=== PATIENT | female | born 1950 | race Caucasian/White ===

== ENCOUNTER → 2016-06-26 | Outpatient (CLI) | payer OTHER ==
[~2016-06-26] MED LIST: ACET300T2 PO; ANT25 PO; CEPH500C PO; ESOM20CA PO; FLUT0.15 NAE; KETO10TA PO; MAXAIR INH; MISCTAB78 PO; MULTTAB58 PO; ONDA4TAB10 SL; OXYC-57 PO; RIZA10TA19 PO; ROSU5TAB PO
[2016-06-26 11:10] LABS: BASO % 0.8 %; BASO ABS # 0.04 K/uL (0-0.2); COMPLETE YES; HEMATOCRIT 40.3 % (37-47); LYMPH % 45.5 %; LYMPH ABS # 2.33 K/uL (1.2-3.4); MEAN CORPUSCULAR HEMOGLOBIN 30.3 pg (25-34); MEAN CORPUSCULAR HGB CONC 34.5 g/dl (32-36); MEAN PLATELET VOLUME 10.1 fL (7.4-10.4); MONO % 8.4 %; NEUT % 43.3 %; PLATELET COUNT 249 K/uL (130-400); RED BLOOD COUNT 4.58 M/uL (4.2-5.4); WHITE BLOOD COUNT 5.12 K/uL (4.8-10.8)
[2016-06-26 12:08] LABS: BLOOD UREA NITROGEN 11 mg/dl (7-18); BUN/CREATININE RATIO 15.9 (10-20); CALCIUM 9.7 mg/dl (8.5-10.1); CARBON DIOXIDE 26 mmol/L (21-32); CHLORIDE 106 mmol/L (98-107); CREATININE 0.67 mg/dl (0.60-1.20); GLUCOSE 80 mg/dl (70-99); POTASSIUM 4.3 mmol/L (3.5-5.1); SODIUM 143 mmol/L (136-145)
== END | disposition home or self-care (01) ==
LOC: C.CPL 10:10
PROVIDERS: ATTEND Orthopaedic Surgery
DX: Z01.812 Encounter for preprocedural laboratory examination (principal); Z01.810 Encounter for preprocedural cardiovascular examination; M25.512 Pain in left shoulder

== ENCOUNTER → 2016-07-18 | Day surgery (SDC) | payer OTHER ==
[2016-07-03 13:08] VITALS: Ht 156.2 cm; Wt 69.1 kg
[~2016-07-18] VITALS: Ht 156.2 cm; Wt 69.1 kg
[~2016-07-18] MED LIST changes: +ATROPINE SULFATE 0.1 MG/ML 5ML SYR IV PRN; +BUPIVACAINE/EPINEPHRINE 0.25% 1:200,000 30 ML VIAL ONE; +BUPIVACAINE/EPINEPHRINE 0.5% MPF 1:200,000 30 ML VIAL ONE; +CEFAZOLIN 1000MG/55 ML D5W IV SCH; +CEFAZOLIN 2000 MG/60 ML D5W IV SCH; +CEFAZOLIN 3000 MG/65 ML D5W IV SCH; +CIPROFLOXACIN / D5W 400 MG IV SCH; +CLINDAMYCIN 600 MG/54 ML D5W IV SCH; +DEXAMETHASONE SOD INJ 4 MG/ML VIAL ONE; +EpHEDrine SULFATE INJ 50 MG/ML AMP IV PRN; +EpINEphrine INJ 1MG/ML AMP 1 MG/ML AMP ONE; +FENTANYL CITRATE INJ 50 MCG/1 ML 2 ML VIAL IV PRN; +FENTANYL CITRATE INJ 50 MCG/1 ML 2 ML VIAL ONE; +LACTATED RINGER'S 1000ML 1,000 ML IV SCH; +LEVOFLOXACIN / D5W 500 MG IV SCH; +LEVOFLOXACIN / D5W 750 MG IV SCH; +LIDOCAINE HCL 2% 2 ML VIAL (20MG/ML) ONE; +MIDAZOLAM HCL 1 MG/ML 2ML VIAL ONE; +ONDANSETRON INJ 2 MG/ML 2 ML VIAL IV PRN; +ONDANSETRON INJ 2 MG/ML 2 ML VIAL ONE; +OXYCODONE/ACETAMINOPHEN 5-325 TAB PO PRN; +PROMETHAZINE HCL INJ 6.25 MG in SODIUM CHLORIDE 0.9% 50ML 50 ML IV PRN; +PROPOFOL IV EMULSION 10 MG/ML 20 ML VIAL IV ONE; +SODIUM CHLORIDE 0.9% 1000ML 1,000 ML IV SCH; +VANCOMYCIN 1GM/270ML NSS IV SCH
--- NOTE | 2016-07-18 08:14 | History & Physical Bridge - [place] ---
H&P Re-Evaluation Bridge Note: I have examined the patient, reviewed the History & Physical and in the interval since the performance of the History & Physical I have noted the following changes of clinical significance: No changes noted
--- NOTE | 2016-07-18 09:03 | [facility] Post Operative Brief Note ---
Immediate Operative Summary Operative Date Jul 18, 2016. Pre-Operative Diagnosis Impingement and AC joint arthritis left shoulder Post-Operative Diagnosis same Procedure(s) Performed Left Shoulder Arthroscopy, Biceps Tenotomy, Acromioplasty, Distal Clavicle Resection Surgeon Dr Toledo Breaker Layer Surgeon(s) MARIKA Rios Estimated Blood Loss trace Findings as above Specimens none Complication(s) None Disposition Recovery Room / PACU
--- NOTE | 2016-07-18 09:15 | Discharge Instructions-SurgCtr ---
Discharge Instructions Visit Reason for Visit: Left Shoulder Impingement Syndrome, Joint Pain Discharge Discharge Diagnosis / Problem: SAME ABOVE Discharge Goals Goal(s): Decrease discomfort, Improve function Activity Recommendations Activity Limitations: as noted below Lifting Limitations: gradually increase as tolerated Exercise/Sports Limitations: gradually increase as tolerated Shower/Bathe: may shower/bathe in 3 days Driving or Machine Use: WHEN OUT OF THE SLING AND OFF OF NARCOTICS Anesthesia . Post Anesthesia Instructions: If you have had General Anesthesia or IV Sedation: * Do not drive today. * Resume driving when surgeon permits. * Do not make important decisions or sign legal documents today. * Call surgeon for: 1. Temperature elevations greater than 101 degrees F. 2. Uncontrollable pain. 3. Excessive bleeding. 4. Persistent nausea and vomiting. 5. Medication intolerance (nausea, vomiting or rash). * For nausea and vomiting use only clear liquids such as: tea, soda, bouillon until nausea subsides, then gradually increase diet as tolerated. * If you have any concerns or questions, call your surgeon's office. If physician is unavailable and it is an emergency, call 911 or go to the nearest emergency room. . Instructions / Follow-Up Instructions / Follow-Up MEDICATIONS: * Resume previous medications unless instructed otherwise by your surgeon. * Always take pain medication on a full stomach or with food to avoid upset stomach. * Do not drink alcohol or drive while taking narcotics. * Ibuprofen or Tylenol may be taken if narcotic not needed. SPECIAL CARE INSTRUCTIONS: __ None _X_ Keep extremity elevated and iced x 48 hours; apply ice 20-30 minutes 8-10 times/day. May remove at night. X_ Sling (WEAR NEEDED FOR COMFORT) __24 hrs/day __ Remove at night __ Shoulder Immobilizer __ 24 hrs/day __ Remove at night _X_ Dressing __ Maintain until seen in office, may shower with plastic over site _X_ Remove dressings in 24-48 hours and then may shower _X_ Cover incisions with band-aids after showering __ Do not remove steri-strips Call physician if chills or temperature rises above 102 degrees or pain unrelieved by prescribed pain medications at . . Diet Recommendations Home Diet: no limitations Fluid Restriction: None Procedures Procedures Performed: Left Shoulder Arthroscopy, Biceps Tenotomy, Acromioplasty, Distal Clavicle Resection Pending Studies Studies pending at discharge: no Work Instructions Return To Work: after follow-up Lifting Limitations: INCREASE TOLERATED Medical Emergencies . Who to Call and When: Medical Emergencies: If at any time you feel your situation is an emergency, please call 911 immediately. . Non-Emergent Contact Non-Emergency issues call your: Primary Care Provider Call Non-Emergent contact if: you have a fever, temperature is above 101.5 . . "Provider Documentation" section prepared by Shayan Cooper.
--- NOTE | 2016-07-18 09:43 | Anesthesia Progress Nt - [facility] ---
Anesthesia Post Op Note Date & Time Jul 18, 2016 at 09:43 Vital Signs Pain Intensity: 0 Vital Signs Past 12 Hours Date Time Temp Pulse Resp B/P Pulse Ox O2 Delivery O2 Flow Rate FiO2 07/18/16 09:27 88 20 07/18/16 09:27 87 20 96 07/18/16 09:26 84 19 07/18/16 09:26 85 19 96 07/18/16 09:25 114/78 07/18/16 09:25 36.4 88 20 114/78 97 Room Air 07/18/16 09:21 80 18 100 07/18/16 09:21 80 18 07/18/16 09:20 106/63 07/18/16 09:16 86 19 100 07/18/16 09:16 85 19 07/18/16 09:15 108/64 07/18/16 09:14 100/66 07/18/16 09:14 36.8 89 11 100/66 100 Mask 6 07/18/16 08:16 0 07/18/16 08:15 0 07/18/16 08:10 89 11 120/76 100 07/18/16 08:10 90 07/18/16 08:05 89 07/18/16 08:05 89 0 134/78 99 07/18/16 08:00 84 0 99 07/18/16 08:00 86 07/18/16 07:55 89 0 99 07/18/16 07:55 92 07/18/16 07:50 85 13 07/18/16 07:50 86 13 99 07/18/16 07:42 36.2 88 20 131/84 97 Room Air Notes Mental Status: alert / awake / arousable, participated in evaluation Pt Amnestic to Procedure: Yes Nausea / Vomiting: adequately controlled Pain: adequately controlled Airway Patency, RR, SpO2: stable & adequate BP & HR: stable & adequate Hydration State: stable & adequate Anesthetic Complications: no major complications apparent
[2016-07-18 09:56] VITALS: BP 117/78; PULSE 84; TEMP 37.1; O2SAT 96
--- NOTE | 2016-07-18 10:35 | OPERATIVE REPORT ---
DATE OF OPERATION: 07/18/2016 PREOPERATIVE DIAGNOSIS: External impingement and acromioclavicular joint arthritis of the left shoulder. POSTOPERATIVE DIAGNOSIS: Same. PROCEDURE: Left shoulder diagnostic arthroscopy with limited debridement, distal clavicle resection, acromioplasty and biceps tenotomy. SURGEON: Dr. Luan Toledo. CONTRACTS ATTORNEY: Fuad Cooper PA-C, whose assistance was necessary for positioning the arm and helping with instrumentation. ANESTHESIA: Sedation with a left interscalene nerve block. COMPLICATIONS: None. CONDITION: Stable to PACU. INDICATIONS: Mari is a very pleasant 65-year-old female who presented to my office with chronic left shoulder pain. MRI and clinical examination were diagnostic for severe external impingement and AC joint arthritis. After failing conservative treatment, she elected to undergo arthroscopy. OPERATION AND FINDINGS: PROCEDURE: On 07/18/2016, she arrived at [facility] for the above procedure. She was seen in the preoperative holding area and the operative extremity was identified and signed. She was given a preoperative antibiotic and a left interscalene nerve block. She was taken back to the operating room, laid on the table in supine position and put under basic sedation. She was then put into the beachchair position. The left shoulder was prepped and draped in sterile fashion. Time-out was done and the patient and operative extremity was properly identified. A scope was introduced in the posterior portal. Diagnostic arthroscopy showed no cartilage damage to the humeral head or the glenoid. There was some redness around the base of the biceps tendon and the biceps tendon was very red on the dorsal aspect. There was a degenerative superior labral tear. The supraspinatus, infraspinatus, teres minor, and subscapularis were all checked and intact. An anterior portal was made. A shaver was used to do a limited debridement of the intraarticular structures and the biceps tendon was arthroscopically tenotomized. The scope was then put into the subacromial space. A lateral portal was made. A shaver was used to do a complete subacromial and subdeltoid bursectomy. An ablator was used to tease the coracoacromial ligament off the undersurface of the acromion and a 5-0 laura was used to complete an acromioplasty of a Bigliani type 3 acromion. A shaver was used to remove any excess debris and the bursal side of the rotator cuff was examined extensively without evidence of tear. Attention was turned to the distal clavicle. Through an anterior portal, a shaver and ablator were used to skeletonize the distal clavicle. A 5-0 laura was then used to resect the distal 7 mm from the clavicle. Complete resection was checked under direct visualization. Arthroscopic instruments were removed from the shoulder. Portal sites were closed with 3-0 nylon. She was then placed in a soft dressing and regular arm sling. She was then extubated, transferred to a litter and taken to the postanesthesia care unit in stable condition. She tolerated the procedure well. I attest to the content of the Intraoperative Record and any orders documented therein. Any exceptio ns are noted below.
== END | disposition home or self-care (01) ==
LOC: X.SURG 07:29
PROVIDERS: ATTEND Orthopaedic Surgery
DX: M75.42 Impingement syndrome of left shoulder (principal); M19.012 Primary osteoarthritis, left shoulder; M75.22 Bicipital tendinitis, left shoulder; Z87.828 Personal history of other (healed) physical injury and trauma

== ENCOUNTER → 2016-12-11 | Outpatient (CLI) | payer OTHER ==
[~2016-12-11] MED LIST changes: -ATROPINE SULFATE 0.1 MG/ML 5ML SYR IV PRN; -BUPIVACAINE/EPINEPHRINE 0.25% 1:200,000 30 ML VIAL ONE; -BUPIVACAINE/EPINEPHRINE 0.5% MPF 1:200,000 30 ML VIAL ONE; -CEFAZOLIN 1000MG/55 ML D5W IV SCH; -CEFAZOLIN 2000 MG/60 ML D5W IV SCH; -CEFAZOLIN 3000 MG/65 ML D5W IV SCH; -CIPROFLOXACIN / D5W 400 MG IV SCH; -CLINDAMYCIN 600 MG/54 ML D5W IV SCH; -DEXAMETHASONE SOD INJ 4 MG/ML VIAL ONE; -EpHEDrine SULFATE INJ 50 MG/ML AMP IV PRN; -EpINEphrine INJ 1MG/ML AMP 1 MG/ML AMP ONE; -FENTANYL CITRATE INJ 50 MCG/1 ML 2 ML VIAL IV PRN; -FENTANYL CITRATE INJ 50 MCG/1 ML 2 ML VIAL ONE; -LACTATED RINGER'S 1000ML 1,000 ML IV SCH; -LEVOFLOXACIN / D5W 500 MG IV SCH; -LEVOFLOXACIN / D5W 750 MG IV SCH; -LIDOCAINE HCL 2% 2 ML VIAL (20MG/ML) ONE; -MIDAZOLAM HCL 1 MG/ML 2ML VIAL ONE; -ONDANSETRON INJ 2 MG/ML 2 ML VIAL IV PRN; -ONDANSETRON INJ 2 MG/ML 2 ML VIAL ONE; -OXYCODONE/ACETAMINOPHEN 5-325 TAB PO PRN; -PROMETHAZINE HCL INJ 6.25 MG in SODIUM CHLORIDE 0.9% 50ML 50 ML IV PRN; -PROPOFOL IV EMULSION 10 MG/ML 20 ML VIAL IV ONE; -SODIUM CHLORIDE 0.9% 1000ML 1,000 ML IV SCH; -VANCOMYCIN 1GM/270ML NSS IV SCH
--- NOTE | 2016-12-11 12:44 | MAMMOGRAPHY REPORT ---
BILATERAL DIGITAL SCREENING MAMMOGRAM WITH CAD: 12/11/2016 CLINICAL HISTORY: Routine screening. Patient has no complaints. TECHNIQUE: Bilateral CC and MLO views were obtained. Current study was also evaluated with a Compute r Aided Detection (CAD) system. COMPARISON: Comparison is made to exams dated: 11/24/2015 mammogram, 11/17/2014 mammogram, 11/16/2013 mamm ogram, 11/09/2012 mammogram, 11/08/2011 mammogram, and 11/01/2010 mammogram - [facility] er. BREAST COMPOSITION: There are scattered areas of fibroglandular density in both breasts. FINDINGS: There are scattered bilateral benign rim calcifications in the breasts. Fluctuating nodul arity in the medial right breast, most likely represents fluctuating cysts. There is architectural d istortion in the upper outer quadrant of the right breast, likely representing the prior excisional b iopsy site. No suspicious spiculated or irregular mass, unexpected architectural distortion or clust er of suspicious microcalcifications is seen. IMPRESSION: ACR BI-RADS CATEGORY 1: NEGATIVE There is no mammographic evidence of malignancy. A 1 year screening mammogram is recommended. The pa tient will receive written notification of the results. Approximately 10% of breast cancers are not detected with mammography. A negative mammographic report should not delay biopsy if a clinically suggestive mass is present. Briana Lee M.D. ay/:12/11/2016 11:30:26 Solvent Process Extractor Operator: Christy Russell, [facility] letter sent: Normal 1/2 BI-RADS Code: ACR BI-RADS Category 1: Negative
== END | disposition home or self-care (01) ==
LOC: C.MAMM 11:06
PROVIDERS: ATTEND Physician Assistant
DX: Z12.31 Encounter for screening mammogram for malignant neoplasm of breast (principal)

== ENCOUNTER 2017-01-13 10:51 | Emergency (ER) | payer OTHER ==
[~2017-01-13] VITALS: Ht 154.9 cm; Wt 72.0 kg
[~2017-01-13 10:51] MED LIST changes: -ANT25 PO; -CEPH500C PO; -ONDA4TAB10 SL; -ROSU5TAB PO
[2017-01-13 11:00] VITALS: TEMP 36.7; Ht 154.9 cm; Wt 72.0 kg
[2017-01-13] MEDS ORDERED: ROSU5TAB PO (11:10)
[2017-01-13] MEDS ORDERED: SODIUM CHLORIDE 0.9% 1000ML 1,000 ML IV STA (12:06)
[2017-01-13] MEDS ORDERED: ONDANSETRON INJ 2 MG/ML 2 ML VIAL IV STA (12:06)
[2017-01-13] MEDS ORDERED: LORAZEPAM 2 MG/ML 1 ML VIAL IV STA (12:06)
[2017-01-13] MEDS ORDERED: MECLIZINE HCL 25 MG TAB PO STA (12:06)
[2017-01-13 12:51] LABS: BASO % 0.4 %; BASO ABS # 0.02 K/uL (0-0.2); COMPLETE YES; HEMATOCRIT 40.2 % (37-47); IG% 0.2 %; LYMPH % 18.8 %; LYMPH ABS # 0.96 K/uL (1.2-3.4); MEAN CELL VOLUME 88.2 fL (80-100); MEAN CORPUSCULAR HEMOGLOBIN 30.5 pg (25-34); MEAN CORPUSCULAR HGB CONC 34.6 g/dl (32-36); MEAN PLATELET VOLUME 9.9 fL (7.4-10.4); MONO % 8.8 %; NEUT % 71.8 %; PLATELET COUNT 217 K/uL (130-400); RED BLOOD COUNT 4.56 M/uL (4.2-5.4)
--- NOTE | 2017-01-13 12:56 | DIAGNOSTIC IMAGING REPORT ---
HEAD CT NONCONTRAST CT DOSE: 537.48 mGy.cm HISTORY: Dizziness. EVALUATE ALTERED MENTAL STATUS/WEAKNESS TECHNIQUE: Multiaxial CT images of the head were performed without the use of intravenous contrast. Automated exposure control was utilized for this study. A dose lowering technique was utilized adhering to the principles of ALARA. Comparison: None. Findings: The paranasal sinuses and mastoid air cells are clear. The calvarium and skull base are intact. The ventricles and sulci are within normal limits. There is no mass, hematoma, midline shift, or acute infarct. Prominent perivascular spaces inferior to the bilateral basal ganglia. These are considered to be normal variants Impression: No acute intracranial abnormality. Electronically signed by: Sudhir Gaines M.D. 01/13/2017 12:54 PM Dictated Date/Time: 01/13/2017 12:49 PM
--- NOTE | 2017-01-13 13:03 | EMERGENCY ROOM VISIT NOTE ---
History Report prepared by Serina: Osvaldo Molina Under the Supervision of: Dr. Ranjit Lopez M.D. First contact with patient: 11:59 Chief Complaint: DIZZY Stated Complaint: DIZZY, SEVERE CONGESTION, VOMITING Nursing Triage Summary: pt reports feeling dizzy started at 2300 last night. last week grandson dx with strep/ over weekend started with sorethroat and cough. vomits when she moves. took tylenol yesterday and has meclizine took last night and at 0630 this am History of Present Illness The patient is a 66 year old female who presents to the Emergency Room with complaints of constant dizziness starting last night starting around 2300. The patient additionally states that starting three days ago she was having a sore throat, then two days ago she had body aches, chills, a cough, and a runny nose. She states that last night when she tried to go to bed she started to get dizzy like the room was spinning, and every time she gets up to walk she gets dizzy and immediately vomits which has happened around 5 times.. She states that she has a history of vertigo after her shoulder surgery, though she states that this feels different. The patient additionally notes that she was taking care of her grandson this past week who was recently diagnosed with strep throat. The patient states that her sore throat is a little better than the past few days, and her dizziness is worsened when she looks left. She denies any current headache, though she did have one yesterday which resolved after taking her migraine medication. Source of History: patient Onset: last night around 2300 Position: other (global) Quality: other (dizziness) Timing: constant Associated Symptoms: + chills, + sorethroat, + cough, + vomiting, No headache Review of Systems See HPI for pertinent positives & negatives. A total of 10 systems reviewed and were otherwise negative. Past Medical & Surgical Medical Problems: (1) Vertigo Surgical Problems: (1) H/O shoulder surgery Social History Smoking Status: Never Smoker Marital Status: Occupation Status: retired Current/Historical Medications Scheduled Cephalexin Monohydrate (Keflex), 500 MG PO TID Misc Natural Products (Osteo Bi-Flex Advanced Do), 1 TAB PO BID Multiple Vitamin (Multivitamin), 1 TAB PO QAM Ondasetron Odt (Zofran Odt), 4-8 MG SL Q6H Rosuvastatin Calcium (Crestor), 5 MG PO DAILY Scheduled PRN Acetaminophen W/ Codeine (Tylenol W/Codeine #3), 1 TAB PO UD PRN for Migraine Esomeprazole Magnesium (Nexium), 20 MG PO QAM PRN for Indigestion Fluticasone Propionate (Nasal) (Flonase Allergy Relief), 2 SPRAY MARIAA DAILY PRN for ALLERGIES Meclizine HCl (Meclizine HCl), 1 TAB PO Q8 PRN for Dizziness or Vertigo Rizatriptan Benzoate (Maxalt-Melt Down Furnace Operator), 10 MG PO UD PRN for Migraine Allergies Coded Allergies: Doxycycline (Verified Allergy, Unknown, HIVES (?), 01/13/17) Moxifloxacin (Verified Allergy, Unknown, HIVES, 01/13/17) Nitrofurantoin (Verified Allergy, Unknown, HIVES, 01/13/17) Penicillins (Verified Allergy, Unknown, HIVES, 01/13/17) Statins (Verified Allergy, Unknown, MUSCLE PAIN, 01/13/17) Sulfa Antibiotics (Verified Allergy, Unknown, UNKNOWN - HAPPENED A CHILD, 01/13/17) Physical Exam Vital Signs Date Time Temp Pulse Resp B/P (MAP) Pulse Ox O2 Delivery O2 Flow Rate FiO2 01/13/17 15:41 80 18 124/77 95 Room Air 01/13/17 13:35 81 18 124/77 99 Room Air 01/13/17 12:32 79 16 123/78 97 Room Air 01/13/17 12:15 78 01/13/17 11:00 36.7 88 18 117/75 98 Room Air Physical Exam GENERAL: Patient is in no acute distress. HEENT: No nystagmus. No acute trauma, normocephalic atraumatic, mucous membranes moist, no nasal congestion, no scleral icterus. No nystagmus. NECK: No stridor, no adenopathy, no meningismus, trachea is midline. LUNGS: Clear to auscultation bilaterally, no wheeze, no rhonchi, breath sounds equal. HEART: Without murmurs gallops or rubs, regular rate and rhythm. ABDOMEN: Soft, nontender, bowel sounds positive, no hernias, no peritonitis. EXTREMITIES: No cyanosis or edema, full range of motion of all the joints without pain or difficulty, no signs for acute trauma. NEUROLOGIC: Oriented x 3, no acute motor or sensory deficits, no focal weakness. SKIN: No rash, no jaundice, no diaphoresis. Medical Decision & Procedures ER Provider Diagnostic Interpretation: Radiology results as stated below per my review and radiologist interpretation: HEAD CT NONCONTRAST CT DOSE: 537.48 mGy.cm HISTORY: Dizziness. EVALUATE ALTERED MENTAL STATUS/WEAKNESS TECHNIQUE: Multiaxial CT images of the head were performed without the use of intravenous contrast. Automated exposure control was utilized for this study. A dose lowering technique was utilized adhering to the principles of ALARA. Comparison: None. Findings: The paranasal sinuses and mastoid air cells are clear. The calvarium and skull base are intact. The ventricles and sulci are within normal limits. There is no mass, hematoma, midline shift, or acute infarct. Prominent perivascular spaces inferior to the bilateral basal ganglia. These are considered to be normal variants Impression: No acute intracranial abnormality. Electronically signed by: Sudhir Gaines M.D. 01/13/2017 12:54 PM Dictated Date/Time: 01/13/2017 12:49 PM Laboratory Results 01/13/17 12:15 Red Blood Count 4.56, Mean Corpuscular Volume 88.2, Mean Corpuscular Hemoglobin 30.5, Mean Corpuscular Hemoglobin Concent 34.6, Mean Platelet Volume 9.9, Neutrophils (%) (Auto) 71.8, Lymphocytes (%) (Auto) 18.8, Monocytes (%) (Auto) 8.8, Eosinophils (%) (Auto) 0.0, Basophils (%) (Auto) 0.4, Neutrophils # (Auto) 3.66, Lymphocytes # (Auto) 0.96, Monocytes # (Auto) 0.45, Eosinophils # (Auto) 0.00, Basophils # (Auto) 0.02 01/13/17 12:15 Test 01/13/17 12:15 01/13/17 13:31 White Blood Count 5.10 K/uL (4.8-10.8) Red Blood Count 4.56 M/uL (4.2-5.4) Hemoglobin 13.9 g/dL (12.0-16.0) Hematocrit 40.2 % (37-47) Mean Corpuscular Volume 88.2 fL (80-100) Mean Corpuscular Hemoglobin 30.5 pg (25-34) Mean Corpuscular Hemoglobin Concent 34.6 g/dl (32-36) Platelet Count 217 K/uL (130-400) Mean Platelet Volume 9.9 fL (7.4-10.4) Neutrophils (%) (Auto) 71.8 % Lymphocytes (%) (Auto) 18.8 % Monocytes (%) (Auto) 8.8 % Eosinophils (%) (Auto) 0.0 % Basophils (%) (Auto) 0.4 % Neutrophils # (Auto) 3.66 K/uL (1.4-6.5) Lymphocytes # (Auto) 0.96 K/uL (1.2-3.4) Monocytes # (Auto) 0.45 K/uL (0.11-0.59) Eosinophils # (Auto) 0.00 K/uL (0-0.5) Basophils # (Auto) 0.02 K/uL (0-0.2) RDW Standard Deviation 40.5 fL (36.4-46.3) RDW Coefficient of Variation 12.6 % (11.5-14.5) Immature Granulocyte % (Auto) 0.2 % Immature Granulocyte # (Auto) 0.01 K/uL (0.00-0.02) Anion Gap 8.0 mmol/L (3-11) Est Creatinine Clear Calc Drug Dose 77.5 ml/min Estimated GFR () 106.8 Estimated GFR (Non- 92.2 BUN/Creatinine Ratio 12.2 (10-20) Calcium Level 9.0 mg/dl (8.5-10.1) Total Bilirubin 0.3 mg/dl (0.2-1) Aspartate Amino Transf (AST/SGOT) 22 U/L (15-37) Alanine Aminotransferase (ALT/SGPT) 31 U/L (12-78) Alkaline Phosphatase 79 U/L (45-117) Total Protein 7.7 gm/dl (6.4-8.2) Albumin 3.9 gm/dl (3.4-5.0) Globulin 3.8 gm/dl (2.5-4.0) Albumin/Globulin Ratio 1.0 (0.9-2) Thyroid Stimulating Hormone (TSH) 1.270 uIu/ml (0.300-4.500) Urine Color YELLOW Urine Appearance CLEAR (CLEAR) Urine pH 7.5 (4.5-7.5) Urine Specific [place] 1.012 (1.000-1.030) Urine Protein NEG (NEG) Urine Glucose (UA) NEG (NEG) Urine Ketones 1+ (NEG) Urine Occult Blood NEG (NEG) Urine Nitrite POS (NEG) Urine Bilirubin NEG (NEG) Urine Urobilinogen NEG (NEG) Urine Leukocyte Esterase TRACE (NEG) Urine WBC (Auto) 10-30 /hpf (0-5) Urine RBC (Auto) 0-4 /hpf (0-4) Urine Hyaline Casts (Auto) 0 /lpf (0-5) Urine Epithelial Cells (Auto) >30 /lpf (0-5) Urine Bacteria (Auto) 2+ (NEG) Laboratory results reviewed by me. Medications Administered Medications (Trade) Dose Ordered Sig/Slava Route Start Time Stop Time Status Last Admin Dose Admin Ondansetron HCl (Zofran Inj) 4 mg NOW STAT IV 01/13/17 12:06 01/13/17 12:09 DC 01/13/17 12:29 4 MG Sodium Chloride 1,000 ml @ 999 mls/hr Q1H1M STAT IV 01/13/17 12:06 01/13/17 13:06 DC 01/13/17 12:23 999 MLS/HR Meclizine HCl (Antivert Tab) 25 mg NOW STAT PO 01/13/17 12:06 01/13/17 12:09 DC 01/13/17 12:29 25 MG Lorazepam (Ativan Inj) 0.5 mg NOW STAT IV 01/13/17 12:06 01/13/17 12:09 DC 01/13/17 12:29 0.5 MG Ceftriaxone Sodium (Rocephin Inj) 1 gm NOW STAT IV 01/13/17 13:47 01/13/17 13:49 DC 01/13/17 14:14 1 GM ECG Indication: other (dizziness) Rate (beats per minute): 76 Rhythm: normal sinus Findings: no acute ischemic change, no ectopy ED Course 1159: The patient was evaluated in room A3. A complete history and physical exam was performed. 1206: Ativan Inj 0.5mg IV, Antivert Tab 35mg PO, Sodium Chloride 1000 ml @ 999 mls/hr IV, Zofran Inj 4mg IV 1347: Rocephin Inj 1gm IV 1407: I reevaluated the patient, and she feels better, but she is still dizzy. I am going to give her antibiotics 1454: I reassessed the patient, and she wants to get up and go the bathroom. 1544: Reevaluated the patient. Discussed results and discharge instructions: She verbalized understanding and agreement. The patient is ready for discharge. Medical Decision Differential diagnoses include: stroke, intracranial bleed or mass, sinusitis, otitis media, vertigo, UTI, electrolyte imbalance, and anemia. There is no leukocytosis or concerning anemia. No significant electrolyte abnormality, kidney failure or hepatitis. The patient appears to be in a euthyroid state. EKG shows a sinus rhythm, no acute ischemia. Brain CT shows no acute bleed or mass effect. Urinalysis is suggestive of infection, urine culture is pending. Strep testing was negative. Patient had no focal neurologic deficits. She was awake, she was not toxic. Her symptoms worsened with any movement. She did have a history of vertigo. She has been feeling unwell the last few days. The patient received IV saline, IV Ativan, IV Zofran and oral meclizine. She received a dose of IV ceftriaxone. The patient feels improved. She is somewhat dizzy but is able to walk to the bathroom and back. She is tolerating oral intake, no further vomiting. The patient appears to have a UTI as well as vertigo. The 2 are likely related. She is being discharged on Keflex for a week. Meclizine for vertigo, Zofran for nausea. She will see her doctor later this week. If worsening, she will return. Medication Reconcilliation Current Medication List: was personally reviewed by me Blood Pressure Screening Patient's blood pressure: Normal blood pressure Impression Primary Impression: Dizziness Additional Impressions: UTI (urinary tract infection) Vomiting Scribe Attestation The scribe's documentation has been prepared under my direction and personally reviewed by me in its entirety. I confirm that the note above accurately reflects all work, treatment, procedures, and medical decision making performed by me. Departure Information Dispostion Home / Self-Care Prescriptions Cephalexin Monohydrate (Keflex) 500 Mg Cap 500 MG PO TID for 7 Days, #21 CAP Prov: Ranjit Lopez M.D. 01/13/17 Ondasetron Odt (ZOFRAN ODT) 4 Mg Tab 4-8 MG SL Q6H for Nausea, #10 TAB Prov: Ranjit Lopez M.D. 01/13/17 Meclizine HCl (Meclizine HCl) 25 Mg Tab 1 TAB PO Q8 Y for Dizziness or Vertigo, #12 TAB Prov: Ranjit Lopez M.D. 01/13/17 Referrals Oscar Camacho PA-C (PCP) Forms HOME CARE DOCUMENTATION FORM, IMPORTANT VISIT INFORMATION Patient Instructions [facility] Additional Instructions keflex 3x per day for 1 week rest fluids zofran 1 tab every 6 hours for nausea meclizine for vertigo if needed, 1 tab 3x per day see beatrice baker later this week return if worsening as we discussed Problem Qualifiers
[2017-01-13 13:09] LABS: BUN/CREATININE RATIO 12.2 (10-20); CREATININE 0.63 mg/dl (0.60-1.20); POTASSIUM 3.8 mmol/L (3.5-5.1)
[2017-01-13 13:22] LABS: THYROID STIMULATING HORMONE 1.27 uIu/ml (0.300-4.500)
[2017-01-13 13:42] LABS: URINE APPEARANCE CLEAR (CLEAR); URINE BILIRUBIN NEG (NEG); URINE COLOR YELLOW; URINE EPITHELIAL CELL AUTO >30 /lpf (0-5); URINE NITRITE POS (NEG); URINE PH 7.5 (4.5-7.5); URINE SPECIFIC GRAVITY 1.012 (1.000-1.030); UROBILINOGEN NEG (NEG); ZZUR CULT IF INDIC CLEAN CATCH YES
[2017-01-13 13:44] LABS: MANUAL MICROSCOPIC REQUIRED? NO; REVIEW REQ? NO
[2017-01-13] MEDS ORDERED: CEFTRIAXONE SOD INJ 1 GM ADDVIAL IV STA (13:47)
[2017-01-13 15:41] VITALS: BP 124/77; PULSE 80; O2SAT 95
[2017-01-13] MEDS ORDERED: ONDA4TAB10 SL (15:48)
[2017-01-13] MEDS ORDERED: ANT25 PO (15:48)
[2017-01-13] MEDS ORDERED: CEPH500C PO (15:48)
--- NOTE | 2017-01-15 17:30 | Pharmacy Progress Note ---
ED Pharmacist Culture FollowUp Date of Service: Jan 15, 2017. Patient was sent home with a prescription for cephalexin, which should cover the E. coli growing from the patient's urine culture.
== END 2017-01-13 16:07 | disposition home or self-care (01) ==
LOC: C.EDB 10:52 → C.EDA 16:07
DX: N39.0 Urinary tract infection, site not specified (principal); R11.10 Vomiting, unspecified; Z79.899 Other long term (current) drug therapy

== ENCOUNTER → 2017-12-15 | Outpatient (CLI) | payer OTHER ==
[~2017-12-15] MED LIST changes: +ANT25 PO; -KETO10TA PO; -MAXAIR INH; -OXYC-57 PO; +ROSU5TAB PO
--- NOTE | 2017-12-16 15:21 | MAMMOGRAPHY REPORT ---
BILATERAL DIGITAL SCREENING MAMMOGRAM TOMOSYNTHESIS WITH CAD: 12/15/2017 CLINICAL HISTORY: Routine screening. TECHNIQUE: The study was acquired using full field digital technology and interpreted from soft copy. Breast tomosynthesis in addition to standard 2D mammography was performed. Current study was also ev aluated with a Computer Aided Detection (CAD) system. COMPARISON: Comparison is made to exams dated: 12/11/2016 mammogram, 11/24/2015 mammogram, 11/17/2014 julio mogram, 11/16/2013 mammogram, 11/09/2012 mammogram, and 11/08/2011 mammogram - [facility] er. BREAST COMPOSITION: There are scattered areas of fibroglandular density in both breasts. FINDINGS: There is fluctuating nodularity in the breasts, most likely representing fluctuating cysts. There are scattered benign coarse and rodlike calcifications. A linear scar marker overlies the ri ght upper outer quadrant. No new suspicious spiculated or irregular mass, architectural distortion, d eveloping asymmetry or cluster of microcalcifications is seen. IMPRESSION: ACR BI-RADS CATEGORY 1: NEGATIVE There is no mammographic evidence of malignancy. A 1 year screening mammogram is recommended.( [id number]) The patient will receive written notification of the results. Some breast cancers are not detected with mammography. A negative mammographic report should not cheri y biopsy if a clinically suggestive mass is present. Briana Lee M.D. ay/:12/15/2017 15:59:50 [employer]: RT Elder(Raghu)(M), [facility] letter sent: Normal 1/2 BI-RADS Code: ACR BI-RADS Category 1: Negative
== END | disposition home or self-care (01) ==
LOC: C.MAMM 09:28
PROVIDERS: ATTEND Physician Assistant
DX: Z12.31 Encounter for screening mammogram for malignant neoplasm of breast (principal)